=== PATIENT | male | born 1960 | race Caucasian/White ===

== ENCOUNTER 2020-07-18 09:31 | Outpatient (CLI) | payer BC ==
--- NOTE | 2020-07-18 14:37 | NM ---
EXAM: NM Bone Scan Three Phase PROVIDED CLINICAL HISTORY: Abnormal appearance of the marrow signal intensity on MRI lumbar spine on 07/06/2020. Bone scan recomm ended. COMPARISON: MRI lumbar spine on 07/06/2020 FINDINGS: There is mild increased uptake seen within the bilateral shoulders and left hip in a degenerative pat tern. No additional abnormal areas of increased uptake of radiotracer seen throughout the visualized appendicular or axial skeleton. Expected activity is seen in the region of the bilateral k idneys and in the urinary bladder. No abnormal areas of increased uptake are seen throughout the spine, there is no abnormal increased uptake of radiotracer seen in the L4 vertebral body to correspo nd to the low signal intensity area on MRI lumbar spine. IMPRESSION: 1. No scintigraphic findings to suggest metastatic disease. 2. Mild degenerative changes in the bilateral shoulders and left hip. 3. No focal of increased uptake is seen in the L4 vertebral body to correspond to the MRI abnormality . Review of the MRI demonstrates scattered low signal intensity areas throughout the lower thoracic vertebral bodies and lumbar vertebral bodies, and findings may be attributable to senescent changes o r conversion to red marrow. This finding was reviewed with Dr. Evans who is in agreement with the above findings and assessment.
== END 2020-07-18 09:32 | disposition home or self-care (01) ==
LOC: NM 09:31
PROVIDERS: ATTEND Family Medicine Sports Medicine
DX: R22.9 Localized swelling, mass and lump, unspecified (principal); M19.011 Primary osteoarthritis, right shoulder; M19.012 Primary osteoarthritis, left shoulder; M16.12 Unilateral primary osteoarthritis, left hip
CPT/HCPCS: 78315; A9503

== ENCOUNTER 2021-06-14 09:38 | Outpatient (CLI) | payer BC ==
[2021-06-14 11:02] LABS: Mean Corpuscular HGB CONC 31.9 g/dL (32.0-36.0); Mean Corpuscular Hemoglobin 30.2 pg (27.0-33.0); Mean Corpuscular Volume 94.5 fl (81.2-95.1); Mean Platelet Volume 10.5 fl (7.4-10.4); Platelet Count 227 10x3/uL (150-450); RBC Distribution Width 14.9 % (11.5-14.5); White Blood Cell (WBC) Count 9.3 10x3/uL (3.5-10.5)
[2021-06-14 11:13] LABS: Bilirubin Neg (Negative); Blood, Urine Negative (Negative); Clarity Clear (Clear); Glucose, Urine (Dipstick) Normal (Negative); Ketone, Urine Negative (Negative); Leukocyte Negative (Negative); Nitrite Negative (Negative); Protein, Urine (Dipstick) 15 mg/dl (Neg-Trace); Urobilinogen Normal mg/dL (Less than 2)
[2021-06-14 11:30] LABS: Bacteria/HPF None Seen HPF (None Seen); RBC/HPF 0-3 HPF (0-3); Squamous Epithelial None Seen HPF (0-3); WBC/HPF 0-3 HPF (0-3)
[2021-06-14 11:40] LABS: Anion Gap 14 mmol/L (10-20); BUN (Urea Nitrogen) 20 mg/dL (8.4-25.7); Calc. Creatinine Clearance 0 mL/min (70-130); Carbon Dioxide 27 mmol/L (23-31); Chloride 107 mmol/L (98-107); Glucose 98 mg/dL (80-115); Potassium 4.7 mmol/L (3.5-5.1); Sodium 143 mmol/L (136-145)
[2021-06-15 14:34] LABS: SARS-CoV-2 PCR by NAA Not Detected (NotDetected)
== END 2021-06-14 09:39 | disposition home or self-care (01) ==
LOC: LABBT 09:38
PROVIDERS: ATTEND Urology
DX: Z01.818 Encounter for other preprocedural examination (principal); Z20.822 Contact with and (suspected) exposure to COVID-19
CPT/HCPCS: 80048; 81001; 85027; 87086; U0003; U0005

== ENCOUNTER 2021-06-16 08:00 | Day surgery (SDC) | payer BC ==
[2021-06-14 13:50] VITALS: BMI 24.7
[2021-06-16] MEDS ORDERED: Fentanyl 100 MCG/2 ML VIAL ONE (08:06)
[2021-06-16] MEDS ORDERED: Levofloxacin 500 mg/D5W 100 ml Premix Bag ONE (08:10)
[2021-06-16] MEDS ORDERED: PROPOFOL 200 MG/20 ML VIAL ONE (08:48)
[2021-06-16] MEDS ORDERED: Ondansetron PF 4 MG/2 ML Vial ONE (09:50)
[2021-06-16] MEDS ORDERED: Ketorolac Tromethamine 30 MG/ML VIAL ONE (09:50)
[2021-06-16] MEDS ORDERED: Oxybutynin 5 MG TAB ONE (09:51)
== END 2021-06-16 12:00 | disposition home or self-care (01) ==
LOC: SDC 08:00
PROVIDERS: ATTEND Urology
PROC: 0VT08ZZ Resection of Prostate, Via Natural or Artificial Opening Endoscopic (ICD-10-PCS; principal; 2021-06-16)
DX: N40.1 Benign prostatic hyperplasia with lower urinary tract symptoms (principal); N13.8 Other obstructive and reflux uropathy; N32.89 Other specified disorders of bladder; E78.5 Hyperlipidemia, unspecified; Z79.82 Long term (current) use of aspirin; Z79.899 Other long term (current) drug therapy; Z91.018 Allergy to other foods
CPT/HCPCS: 88305; 93005; 93010; J1885; J1956; J2405; J2704; J3010

== ENCOUNTER 2022-03-26 14:51 | Outpatient (CLI) | payer BC | END 2022-03-26 14:52 | disposition home or self-care (01) | LOC: BICRAD 14:51 | DX: C43.9 Malignant melanoma of skin, unspecified (principal) | CPT/HCPCS: 71046 ==